=== PATIENT | male | born 1995 | race African-American/Black ===

== ENCOUNTER 2016-08-26 11:01 | Emergency (ER) | payer MEDICAID ==
[~2016-08-26] VITALS: Ht 172.7 cm; Wt 56.7 kg
[~2016-08-26 11:01] MED LIST: ALBUTEROL2 PUFFS/17 IN; AMOXICILLIN500 M2 PO; AMOXIL500 MG PO; CLINDAMYCIN HC300 MG PO; IBUPROFEN200 MG PO; IBUPROFEN400 MG PO; KEFLEX 500MG.500 MG PO; NOMEDS; OMNICEF250 MG/5 M PO; ONDANSETRON ODT4 MG PO; PHENERGAN 12.12.5 M1 PO; ZITHROMAX Z PA250 MG PO
[2016-08-26 12:02] LABS: UTC STREP SCREEN NOT DETECTED (NOTDETECTED)
[2016-08-26] MEDS ORDERED: ZITHROMAX Z PA250 MG PO (12:58)
[2016-08-26] MEDS ORDERED: PROVENTIL0.09 MG/A1 IH (12:58)
[2016-08-26] MEDS ORDERED: PROMETHAZINE D118 ML PO (12:58)
--- NOTE | 2016-08-26 12:59 | Urgent Treatment Center Report ---
History of Present Issue Date/Time Seen by Provider 08/26/16 0219 Visit Reason Pt arrived:Walked Presenting Problem:PT STATES SORE THROAT, LOWER BACK PAIN, COUGH, CHEST CONGESTION, THAT HAVE BEEN PRESENT FOR THREE DAYS AND HAVE GOTTEN WORSE. DENIES TREATMENT PRIOR TO ARRIVAL. Location if Accident: Onset of symptoms date/time:/ or onset unknown for:MEDICAL HX UNKNOWN Have you (or family members/close friends) recently traveled outside the [place]? N If Yes, where/when: Have you had exposure to infectious disease within the past month? TB? Other? Specify: c/o cough w/ chest congestion and "some" SOA x 3 days. Fever, bodyaches and wheezing new today. Hasn't taken or tried anything for symptoms. no known sick contacts. Unsure about flu vaccine. Source patient Exam Limitations no limitations ALLERGIES Coded Allergies: Penicillins (Severe, WHIVES 04/05/16) History Medical History General CAD? No Angina: No VA: No Hypertension? No Hyperlipidemia? No CHF? No DVT? No PE? No COPD? No Asthma? Yes Anemia? No GERD? No Gastric ulcers? No GI Bleed? No Hernia? No Thyroid Problems? No Hypothyroidism? No CVA? No Seizures? No Diabetes? No Renal Insuffiency? No UTI? No Stones? No BPH? No GB Disease: No Nephritic Syndrome? No Asplenia? No Hepatitis? No Sickle Cell Disease? No Arthritis? No Migraines? No Cataracts? No Glaucoma? No MRSA? No HIV? No TB? No Anxiety? No Depression? No Cancer? No Site: N More? No Immunization HX DT/Tetanus 1-4 YRS Pneumonia Refuses Surgical Hx Previous Surgery?Y DENTAL PROCEDURE T&A Family History Family HX Diabetes Yes CAD No Hypertension Yes Hyperlipidemia No Cancer No TB No Social History Smoking Hx Smoker: Current Every Day Smoker Tobacco: Yes Type Cigarettes Packs/day 1 1/2 - 2 Packs Alcohol Alcohol: No Review of Systems All Other Systems Reviewed and Negative Constitutional see HPI Eyes denies no symptoms reported ENT see HPI, nose discharge, nose congestion, throat pain (worse at night and in AM) . denies: ear pain. Respiratory see HPI, wheezing (mild, only this morning) Cardiovascular denies chest pain Gastrointestinal denies abdominal pain, denies diarrhea, denies nausea, denies vomiting, other ( decreased appetite) Musculoskeletal back pain (with coughing) Skin denies rash Psychiatric/Neurological denies no symptoms reported Physical Exam Vital Signs Vital Signs Date Time Temp Pulse Resp B/P Pulse O2 O2 Flow FiO2 Ox Delivery Rate 08/26 1147 100.8 91 20 127/75 98 General Appearance no apparent distress Eye Exam - bilateral eye normal exam Ear, Nose, Throat normal ENT inspection Neck non-tender, supple Respiratory Status No: respiratory distress, non productive cough (worse after deep breathing). Lung Sounds anterior: lungs clear. posterior: lungs clear. bilateral: lungs clear. Cardiovascular regular rate/rhythm, no murmur Gastrointestinal normal bowel sounds Neurologic alert Skin warm/dry Lymphatic no adenopathy (cervical) Medical Decision Making LABS/Meds/Orders Pt receiving controlled substance in ED? No Results/Orders Laboratory Tests 08/26/16 1151: Influenza Type A Ag NOT DETECTED, Influenza Type B Ag NOT DETECTED, Group A Strep Screen NOT DETECTED Orders Procedure Date/time Status [facility] STREP SCREEN 08/26 1151 Complete UTC FLU A,B 08/26 1151 Complete Departure Departure Time of Disposition 1255 Disposition DC Home or Self Care(routine) Clinical Impression Primary Impression: Bronchitis Condition STABLE Referrals NO REFERRAL (Family) See PCP or return to [facility]/ER immediate for any new or worsening symtpoms or if no noticeable improvement over the next 48-72 hours. Patient Instructions Albuterol Oral Inhalation, DI for Acute Bronchitis Additional Instructions Increase fluids Rest Alternate tylenol/ibuprofen as discussed for fever/pain warm salt water gargles warm fluids to drink Mucinex w/ lots of water during the day and cough syrup at night Cough syrup should help w/ cough and nausea but will cause drowsiness. No driving, operating machinary or taking care of small children after taking. monitor symptoms. Seek treatment immediately for new or worsening symptoms or if no improvement over the next 72 hours. Discharge Counseling Counseled pt/family regarding diagnosis, test results, medications/RX, home care, follow up needs Prescriptions Current Visit Scripts Azithromycin (Zithromycin (Z-ARGENTINA) 250MG Tab) 250 MG PO DAILY #6 TAB TAKE TWO (2) TABLETS ON DAY 1, THEN ONE (1) TABLET DAY #2 THRU #5 ALBUTEROL (Proventil Hfa Inhaler) 1-2 PUFF IH Q4-6H PRN PRN SOA/Wheezing #1 CAN PROMETHAZINE/DEXTROMETHORPHAN (Promethazine-Dm Syrup) 5-10 ML PO QHS PRN cough #120 SYR at 130
--- NOTE | 2016-08-26 12:59 | Urgent Treatment Center Report ---
History of Present Issue Date/Time Seen by Provider 08/26/16 8099 Visit Reason Pt arrived:Walked Presenting Problem:PT STATES SORE THROAT, LOWER BACK PAIN, COUGH, CHEST CONGESTION, THAT HAVE BEEN PRESENT FOR THREE DAYS AND HAVE GOTTEN WORSE. DENIES TREATMENT PRIOR TO ARRIVAL. Location if Accident: Onset of symptoms date/time:/ or onset unknown for:MEDICAL HX UNKNOWN Have you (or family members/close friends) recently traveled outside the [place]? N If Yes, where/when: Have you had exposure to infectious disease within the past month? TB? Other? Specify: c/o cough w/ chest congestion and "some" SOA x 3 days. Fever, bodyaches and wheezing new today. Hasn't taken or tried anything for symptoms. no known sick contacts. Unsure about flu vaccine. Source patient Exam Limitations no limitations ALLERGIES Coded Allergies: Penicillins (Severe, WHIVES 04/05/16) History Medical History General CAD? No Angina: No IA: No Hypertension? No Hyperlipidemia? No CHF? No DVT? No PE? No COPD? No Asthma? Yes Anemia? No GERD? No Gastric ulcers? No GI Bleed? No Hernia? No Thyroid Problems? No Hypothyroidism? No CVA? No Seizures? No Diabetes? No Renal Insuffiency? No UTI? No Stones? No BPH? No GB Disease: No Nephritic Syndrome? No Asplenia? No Hepatitis? No Sickle Cell Disease? No Arthritis? No Migraines? No Cataracts? No Glaucoma? No MRSA? No HIV? No TB? No Anxiety? No Depression? No Cancer? No Site: N More? No Immunization HX DT/Tetanus 1-4 YRS Pneumonia Refuses Surgical Hx Previous Surgery?Y DENTAL PROCEDURE T&A Family History Family HX Diabetes Yes CAD No Hypertension Yes Hyperlipidemia No Cancer No TB No Social History Smoking Hx Smoker: Current Every Day Smoker Tobacco: Yes Type Cigarettes Packs/day 1 1/2 - 2 Packs Alcohol Alcohol: No Review of Systems All Other Systems Reviewed and Negative Constitutional see HPI Eyes denies no symptoms reported ENT see HPI, nose discharge, nose congestion, throat pain (worse at night and in AM) . denies: ear pain. Respiratory see HPI, wheezing (mild, only this morning) Cardiovascular denies chest pain Gastrointestinal denies abdominal pain, denies diarrhea, denies nausea, denies vomiting, other ( decreased appetite) Musculoskeletal back pain (with coughing) Skin denies rash Psychiatric/Neurological denies no symptoms reported Physical Exam Vital Signs Vital Signs Date Time Temp Pulse Resp B/P Pulse O2 O2 Flow FiO2 Ox Delivery Rate 08/26 1147 100.8 91 20 127/75 98 General Appearance no apparent distress Eye Exam - bilateral eye normal exam Ear, Nose, Throat normal ENT inspection Neck non-tender, supple Respiratory Status No: respiratory distress, non productive cough (worse after deep breathing). Lung Sounds anterior: lungs clear. posterior: lungs clear. bilateral: lungs clear. Cardiovascular regular rate/rhythm, no murmur Gastrointestinal normal bowel sounds Neurologic alert Skin warm/dry Lymphatic no adenopathy (cervical) Medical Decision Making LABS/Meds/Orders Pt receiving controlled substance in ED? No Results/Orders Laboratory Tests 08/26/16 1151: Influenza Type A Ag NOT DETECTED, Influenza Type B Ag NOT DETECTED, Group A Strep Screen NOT DETECTED Orders Procedure Date/time Status [facility] STREP SCREEN 08/26 1151 Complete UTC FLU A,B 08/26 1151 Complete Departure Departure Time of Disposition 1255 Disposition DC Home or Self Care(routine) Clinical Impression Primary Impression: Bronchitis Condition STABLE Referrals NO REFERRAL (Family) See PCP or return to [facility]/ER immediate for any new or worsening symtpoms or if no noticeable improvement over the next 48-72 hours. Patient Instructions Albuterol Oral Inhalation, DI for Acute Bronchitis Additional Instructions Increase fluids Rest Alternate tylenol/ibuprofen as discussed for fever/pain warm salt water gargles warm fluids to drink Mucinex w/ lots of water during the day and cough syrup at night Cough syrup should help w/ cough and nausea but will cause drowsiness. No driving, operating machinary or taking care of small children after taking. monitor symptoms. Seek treatment immediately for new or worsening symptoms or if no improvement over the next 72 hours. Discharge Counseling Counseled pt/family regarding diagnosis, test results, medications/RX, home care, follow up needs Prescriptions Current Visit Scripts Azithromycin (Zithromycin (Z-ARGENTINA) 250MG Tab) 250 MG PO DAILY #6 TAB TAKE TWO (2) TABLETS ON DAY 1, THEN ONE (1) TABLET DAY #2 THRU #5 ALBUTEROL (Proventil Hfa Inhaler) 1-2 PUFF IH Q4-6H PRN PRN SOA/Wheezing #1 CAN PROMETHAZINE/DEXTROMETHORPHAN (Promethazine-Dm Syrup) 5-10 ML PO QHS PRN cough #120 SYR at 1301
[2016-08-26 13:02] VITALS: BP 127/75
== END 2016-08-26 13:02 | disposition home or self-care (01) ==
LOC: UTC 11:01
PROVIDERS: Nurse Practitioner Family
DX: J40 Bronchitis, not specified as acute or chronic (principal)